=== PATIENT | female | born 1985 | race Caucasian/White ===

== ENCOUNTER → 2016-11-29 | Outpatient (CLI) | payer MEDICAID ==
--- NOTE | 2016-11-30 11:05 | CPEEG ---
[f rep st] ELECTROENCEPHALOGRAM ELECTROENCEPHALOGRAM. DATE OF STUDY: 11/29/2016 INTERPRETATION: This EEG shows a mild degree of focal slowing and asymmetry over the left frontotem poral head regions. These findings would be consistent with the patient's known previous brain tumo r and neurosurgical resection. There were no potentially epileptogenic abnormalities present during the awake or sleep recordings. REPORT: This EEG contains 9 to 10 Hz alpha to the posterior head regions. There was a mild degree of focal slowing and asymmetry (breach rhythm) over the left frontotemporal head regions, composed o f low-amplitude polymorphic theta activity. There was no abnormal epileptiform activation at rest, during photic stimulation, or hyperventilation. The patient became drowsy and fell asleep during th e study. There was no abnormal epileptiform activation during drowsiness, sleep, or during times of arousal. /[id number]/MODL
== END ==
LOC: FCPNEURO 09:16
PROVIDERS: ATTEND Psychiatry & Neurology Neurology
DX: G40.209 Localization-related (focal) (partial) symptomatic epilepsy and epileptic syndromes with complex partial seizures, not intractable, without status epilepticus (principal)

== ENCOUNTER → 2017-03-28 | Outpatient (CLI) | payer MEDICAID ==
[~2017-03-28] MED LIST: GADOBUTROL 10 ML VIAL IVP ONE
== END ==
LOC: FIMAGING 12:52
PROVIDERS: ATTEND Internal Medicine Hematology & Oncology
DX: C71.9 Malignant neoplasm of brain, unspecified (principal)
CPT/HCPCS: A9585

== ENCOUNTER 2017-05-03 21:54 | Emergency (ER) | payer MEDICAID ==
[2017-05-03 22:12] VITALS: RESP 14; TEMP 97.5
[2017-05-03] MEDS ORDERED: NS 1,000 ML IV ONE ×2 (22:15→23:01)
[2017-05-03] MEDS ORDERED: ONDANSETRON 4 MG/2 ML VIAL IVP ONE (22:15)
--- NOTE | 2017-05-03 22:24 | EDPHY ---
H & P <Roman Cummins - Last Filed: 05/05/17 01:14> Stated Complaint: vertigo,abdominal pain,vomiting for 1 day Source: Patient, Family Exam Limitations: No limitations - Personal History LMP (Females 10-55): 1-7 Days Ago Current Tetanus Diphtheria and Acellular Pertussis (TDAP): Unsure - Medical/Surgical History Hx Asthma: No Hx Chronic Respiratory Disease: No Hx Diabetes: No Hx Cardiac Disease: No Hx Renal Disease: No Hx Cirrhosis: No Hx Alcoholism: No Hx HIV/AIDS: No Hx Splenectomy or Spleen Trauma: No Other PMH: brain tumor-surgery in 2011, radiation in 2016 - Family History Significant Family History: No pertinent family hx - Social History Smoking Status: Never smoked Alcohol Use: None Drug Use: None <Shasha Canada - Last Filed: 05/08/17 07:26> Time Seen by Provider: 05/03/17 21:58 HPI/ROS: 32 yo F with hx of glioma resected in 2011, and radiation in 2015, currently follow by neurologist and oncologist in [place]. preesnts c/o vertigo, vomiting and 10 lb weight loss today. Has tried meclizine. She states this has been a stressful week with lots of holiday activiites and eating heavy rich food and not drinking her usual amount of water. No recent virla illnesses, colds, nasal congestion. No ear pain. Review of systems As per HPI General no fever no chills no weakness HEENT no eye pain no eye discharge. No eye redness, no sore throat Respiratory no cough, no shortness of breath Cardiac no chest pain, no peripheral edema GI pos abdominal pain, no diarrhea, no constipation, positive nausea positive vomiting no flank pain, no hematuria, no dysuria Musculoskeletal no myalgias, no joint pain Heme no easy bruising, no easy bleeding Endo no polyuria, no polydipsia Skin no rashes, no pruritus Neuro no syncope, positive dizziness and vertigo , pos headaches Psych is no suicidal ideation, no homicidal ideation (Shasha Canada) - Physical Exam Exam: 32-year-old female alert and oriented, appears uncomfortable however nontoxic, afebrile head tilted to the right with eyes closed HEENT atraumatic normocephalic, extraocular muscles intact, anicteric, PRRL 8 mm bilateral dry mucosa TMs clear, no bulging, no erythema Oropharynx negative for erythema negative exudate, tolerating her own secretions Neck supple no meningismus Lungs clear to auscultation bilaterally Heart regular rate and rhythm without murmur rub or gallop Abdomen nondistended normoactive bowel sounds soft nontender Back no CVA tenderness, no step-offs, no spinal tenderness Extremities no cyanosis clubbing or edema Neuro alert and oriented, no focal motor or sensory deficits nystagmus on gaze to right (Shasha Canada) Constitutional: Initial Vital Signs Temperature (C) 36.4 C 05/03/17 22:08 Heart Rate 83 05/03/17 22:08 Respiratory Rate 14 05/03/17 22:08 Blood Pressure 112/63 05/03/17 22:08 O2 Sat (%) 100 05/03/17 22:08 O2 Delivery Mode Room Air Allergies/Adverse Reactions: No Known Allergies Allergy (Unverified 05/03/17 22:07) Home Medications: Medication Instructions Recorded Keppra 05/03/17 Spironolactone 05/03/17 LORazepam [Ativan] 1 - 2 tab PO Q8 PRN #20 tablet 05/04/17 Meclizine HCl [Meclizine HCl 25 mg 25 mg PO TID PRN #15 tab 05/04/17 (RX,OTC)] Metoclopramide [Reglan 10 mg tab 10 mg PO Q6H PRN #20 tab 05/04/17 (*)] Ondansetron [Zofran Odt] 4 - 8 mg PO Q8H PRN #20 tab.rapdis 05/04/17 Medical Decision Making - Diagnostics Imaging: Discussed imaging studies w/ aluminum sheet cutter Radiologist <Roman Cummins - Last Filed: 05/05/17 01:14> <Shasha Canada - Last Filed: 05/08/17 07:26> ED Course/Re-evaluation: Care assumed at change of shift. D/w off going physician. Chart reviewed. Pt interviewed and examined. Patient relates that she has had a week of dietary indiscretions due to the holidays. However she woke this morning with acute sense of movement related motion and sensitivity as well as profound nausea precipitated by the movement leading to vomiting. She has had too numerous to count episodes of vomiting. There has been however no diarrhea. No one else similarly ill. The illness was not heralded by headache. Although she did eventually developed a headache through the course of the day. At the time that I assumed care of the patient, initial interventions included a L of normal saline for volume depletion as well as Zofran 4 mg IV. Further she has been given Valium 2.[address] scan of the head his planned. When examined her after the CT and the Valium 2.5 mg: Awake, alert and oriented. Sx worse when head moved to the left such as when she looks to the left. PERRL, denies EOMI with nystagmus at rest, though no vomiting this does ppt nausea. Moves both arms and legs equally well. No clonus Fundi and disc are sharp bilaterally. CT report - D/w radiologist. Postoperative changes. No acute findings. No bleed. Films also reviewed by me on the Paxs. Once she finished the 2nd litre: -she got up to the BR on her own with spotters -repeat Lactic acid obtained = markedly improved to 1.2 Discharge plan reviewed with patient and mother. (Roman Cummins) Patient seen and evaluated for vertigo, vomiting. IV established patient given 1 L normal saline ondansetron 4 mg IV push Lab sent Lactate 3.7 CBC within normal limits CMP within normal limits Lipase normal Patient given an additional 1 L normal saline, and diazepam 2.[address] brain ordered to rule out acute intracranial pathology Imp Vertigo Plan Supportive care, CT brain Endorsed to Dr Cummins at shift change. (Shasha Canada) Differential Diagnosis: Differential diagnosis considered but not limited to: Vertigo Acute labyrinthitis,ear infection, intracranial pathology Vomiting Secondary to vertigo, acute gastritis, gastroenteritis, pancreatitis Patient with history of glioma Rule out recurrence of glioma, intracranial bleed (Shasha Canada) - Data Points Laboratory Results: Laboratory Results 05/03/17 22:20 05/03/17 22:20 Medications Given: Discontinued Medications Diazepam (Valium Injection) 2.5 mg IVP EDNOW ONE Stop: 05/03/17 23:02 Last Admin: 05/03/17 23:10 Dose: 2.5 mg Sodium Chloride (Ns) 1,000 mls @ 0 mls/hr IV ONCE ONE PRN Reason: Wide Open Stop: 05/03/17 22:16 Last Admin: 05/03/17 22:28 Dose: 1,000 mls Sodium Chloride (Ns) 1,000 mls @ 0 mls/hr IV ONCE ONE PRN Reason: Wide Open Stop: 05/03/17 23:02 Last Admin: 05/03/17 23:10 Dose: 1,000 mls Lorazepam (Ativan 1 Mg Prepack#4) 1 btl TAKEHOME EDNOW ONE Stop: 05/04/17 00:44 Last Admin: 05/04/17 01:07 Dose: 1 btl Ondansetron HCl (Zofran) 4 mg IVP EDNOW ONE Stop: 05/03/17 22:16 Last Admin: 05/03/17 22:28 Dose: 4 mg Ondansetron HCl (Zofran Odt 4 Mg Prepack#2) 1 btl TAKEHOME EDNOW ONE Stop: 05/04/17 00:44 Last Admin: 05/04/17 01:05 Dose: 1 btl Departure <Roman Cummins - Last Filed: 05/05/17 01:14> <Shasha Canaad - Last Filed: 05/08/17 07:26> - Departure Disposition: Home, Routine, Self-Care Clinical Impression: Acute labyrinthitis Condition: Good Instructions: Vertigo (ED) Additional Instructions: You will very likely feel this way, but no worse, for approximately 1 week. - thus no work for 1 week, see note - follow up with the regular physician if not completely resolved in 5-7 days - during that time reviewing sense of movement and motion. Try to avoid these For your medications try 1 of the following but not in combination: Nikkie - which is [id number] meclizine Zofran Reglan Ativan Referrals: Margareth Stover MD [Primary Care Provider] - As per Instructions Stand Alone Forms: Work Excuse Prescriptions: LORazepam [Ativan] 1 - 2 tab PO Q8 PRN #20 tablet PRN Reason: Vertigo Meclizine HCl [Meclizine HCl 25 mg (RX,OTC)] 25 mg PO TID PRN #15 tab PRN Reason: Dizziness Metoclopramide [Reglan 10 mg tab (*)] 10 mg PO Q6H PRN #20 tab PRN Reason: Vertigo Ondansetron [Zofran Odt] 4 - 8 mg PO Q8H PRN #20 tab.rapdis PRN Reason: vertigo
[2017-05-03 22:29] LABS: PLATELET COUNT 261 10^3/uL (150-400)
[2017-05-03] MEDS ORDERED: DIAZEPAM 10 MG/2 ML SYR IVP ONE (23:01)
[2017-05-04] MEDS ORDERED: LORAZEPAM 1 MG PREPACK#4 BTL TAKEHOME ONE (00:43)
[2017-05-04] MEDS ORDERED: ONDANSETRON 4MG PREPACK#2 BTL TAKEHOME ONE (00:43)
[2017-05-04 01:33] VITALS: BP 118/72; PULSE 82; O2SAT 96
== END 2017-05-04 01:29 | disposition home or self-care (01) ==
LOC: CED 21:54
DX: H83.09 Labyrinthitis, unspecified ear (principal); E86.9 Volume depletion, unspecified
CPT/HCPCS: 70450-PO; 80053-PO; 83605-PO; 83690-PO; 85025-PO; 96374; J2405

== ENCOUNTER → 2018-03-06 | Outpatient (CLI) | payer MEDICAID | LOC: FIMAGING 07:37 | PROVIDERS: ATTEND Internal Medicine Hematology & Oncology | DX: J32.9 Chronic sinusitis, unspecified (principal); Z85.841 Personal history of malignant neoplasm of brain; Z98.890 Other specified postprocedural states | CPT/HCPCS: A9585 ==

== ENCOUNTER → 2018-09-18 | Outpatient (CLI) | payer MEDICAID | LOC: EMCIMAGING 09:45 | PROVIDERS: ATTEND Physician Assistant | DX: S89.92XA Unspecified injury of left lower leg, initial encounter (principal) | CPT/HCPCS: 73721-PN ==